=== PATIENT | female | born 1980 | race Caucasian/White ===

== ENCOUNTER 2024-05-10 16:52 | Emergency (ER) | payer SELFPAY ==
[~2024-05-10] VITALS: Ht 167.6 cm; Wt 72.6 kg
[2024-05-10 16:52] VITALS: BP 113/84; PULSE 83; RESP 18; TEMP 98.4; O2SAT 99
[2024-05-10 17:57] VITALS: BP 116/74; PULSE 68; RESP 18; TEMP 98.4; O2SAT 99
== END 2024-05-10 17:58 | disposition home or self-care (01) ==
LOC: ER 16:52
DX: K12.0 Recurrent oral aphthae (principal); R21 Rash and other nonspecific skin eruption; E07.9 Disorder of thyroid, unspecified; K21.9 Gastro-esophageal reflux disease without esophagitis; Z87.440 Personal history of urinary (tract) infections; Z98.51 Tubal ligation status
CPT/HCPCS: 99281